=== PATIENT | male | born 1975 | race Caucasian/White ===

== ENCOUNTER 2019-05-12 05:35 | Day surgery (SDC) | payer OTHER | END 2019-05-12 10:35 | disposition home or self-care (01) | LOC: AMB-ENDOS 05:35 | DX: K62.5 Hemorrhage of anus and rectum (principal); K64.1 Second degree hemorrhoids ==

== ENCOUNTER 2019-07-11 07:32 | Day surgery (SDC) | payer OTHER ==
[2019-07-11] MEDS ORDERED: COLACE100 MG PO (09:11)
[2019-07-11] MEDS ORDERED: PERCOCET 5-3251 EACH PO (09:11)
== END 2019-07-11 17:53 | disposition home or self-care (01) ==
LOC: CIR.AMB 07:32
DX: K64.8 Other hemorrhoids (principal)